=== PATIENT | male | born 1965 | race Hispanic/Latino ===

== ENCOUNTER 2022-03-22 11:54 | Emergency (ER) | payer OTHER ==
[2022-03-22 12:50] VITALS: BP 132/82
--- NOTE | 2022-03-22 14:13 | Emergency Department Report ---
ED Fall HPI - General Chief Complaint: Pain General Stated Complaint: FELL DOWN 7 STEP 2D/BACK LEG PAIN Time Seen by Provider: 03/22/22 13:43 Source: patient Mode of arrival: Ambulatory - Related Data Previous Rx's Medication Instructions Recorded Last Taken Type Cyclobenzaprine [Flexeril] 10 mg PO TID PRN #10 tablet 03/22/22 Unknown Rx Ibuprofen [Motrin] 800 mg PO Q8HR PRN #30 tablet 03/22/22 Unknown Rx ED Review of Systems ROS: Stated complaint: FELL DOWN 7 STEP 2D/BACK LEG PAIN Other details as noted in HPI Comment: All other systems reviewed and negative ED Past Medical Hx - Past Medical History Previous Medical History?: Yes Hx Hypertension: Yes Hx Diabetes: Yes Additional medical history: hld - Surgical History Past Surgical History?: No - Family History Family history: no significant - Social History Smoking Status: Never Smoker Substance Use Type: None - Medications Home Medications: Home Medications Medication Instructions Recorded Confirmed Last Taken Type Cyclobenzaprine [Flexeril] 10 mg PO TID PRN #10 tablet 03/22/22 Unknown Rx Ibuprofen [Motrin] 800 mg PO Q8HR PRN #30 tablet 03/22/22 Unknown Rx ED Physical Exam - General Limitations: No Limitations General appearance: alert, in no apparent distress - Head Head exam: Present: atraumatic, normocephalic - Eye Eye exam: Present: normal appearance - ENT ENT exam: Present: mucous membranes moist - Neck Neck exam: Present: normal inspection - Respiratory Respiratory exam: Present: normal lung sounds bilaterally. Absent: respiratory distress - Cardiovascular Cardiovascular Exam: Present: regular rate, normal rhythm. Absent: systolic murmur, diastolic murmur, rubs, gallop - GI/Abdominal GI/Abdominal exam: Present: soft, normal bowel sounds - Rectal Rectal exam: Present: deferred - Extremities Exam Extremities exam: Present: normal inspection - Back Exam Back exam: Present: normal inspection - Neurological Exam Neurological exam: Present: alert, oriented X3 - Psychiatric Psychiatric exam: Present: normal affect, normal mood - Skin Skin exam: Present: warm, dry, intact, normal color. Absent: rash ED Course Vital Signs 03/22/22 12:47 Temperature 98.9 F Pulse Rate 100 H Respiratory 18 Rate Blood Pressure 132/82 O2 Sat by Pulse 98 Oximetry ED Medical Decision Making - Medical Decision Making Vital Signs 03/22/22 12:47 Temperature 98.9 F Pulse Rate 100 H Respiratory 18 Rate Blood Pressure 132/82 O2 Sat by Pulse 98 Oximetry - Differential Diagnosis soft tissue injury/hernia Critical care attestation.: If time is entered above; I have spent that time in minutes in the direct care of this critically ill patient, excluding procedure time. ED Disposition Clinical Impression: Groin strain Qualifiers: Encounter type: initial encounter Laterality: right Qualified Code(s): S76.211A - Strain of adductor muscle, fascia and tendon of right thigh, initial encounter Is pt being admited?: No Does the pt Need Aspirin: No Condition: Stable Instructions: Muscle Strain Additional Instructions: Medications as ordered today. Take this for 72 hours then if pain persist follow-up with the PCP I given you referral to below. Alternate warm and cold compresses for comfort. Avoid over straining the area. Referrals: KATELYNN NINO MD [Staff Physician] - 3-5 Days Time of Disposition: 14:17
== END 2022-03-22 15:15 | disposition home or self-care (01) ==
LOC: ED 11:54
DX: S39.011A Strain of muscle, fascia and tendon of abdomen, initial encounter (principal); I10 Essential (primary) hypertension; E11.9 Type 2 diabetes mellitus without complications; W19.XXXA Unspecified fall, initial encounter; Y93.89 Activity, other specified; Y92.89 Other specified places as the place of occurrence of the external cause; Y99.8 Other external cause status
CPT/HCPCS: 99282